=== PATIENT | male | born 1985 | race Caucasian/White ===

== ENCOUNTER 2022-12-13 11:24 | Emergency (ER) | payer OTHER, BC, MEDICAID ==
[2022-12-13 12:29] VITALS: BP_SYST 125
== END 2022-12-13 12:56 | disposition home or self-care (01) ==
LOC: SED 11:24
DX: S16.1XXA Strain of muscle, fascia and tendon at neck level, initial encounter (principal); Z79.899 Other long term (current) drug therapy; V49.40XA Driver injured in collision with unspecified motor vehicles in traffic accident, initial encounter; Y93.89 Activity, other specified; Y92.89 Other specified places as the place of occurrence of the external cause; Y99.8 Other external cause status
CPT/HCPCS: 99281